=== PATIENT | female | born 1955 | race Caucasian/White ===

== ENCOUNTER 2018-04-10 10:49 | Observation (INO) | payer BC ==
[2018-04-09 16:24] VITALS: BMI 29.0
[~2018-04-10] VITALS: Ht 175.3 cm; Wt 90.9 kg
[2018-04-10] VITALS (7 sets, daily range): BP systolic 119–145; BP diastolic 62–76; PULSE 45–77; TEMP 36.3–36.8; O2SAT 95–98; Ht 175.3 cm; Wt 90.9 kg
[~2018-04-10 10:49] MED LIST: CEFUROXIME IV 1,000 MG in DEXTROSE 5% 50ML 50 ML IV SCH; CEFUROXIME IV 1,500 MG in DEXTROSE 5% 100ML IV SCH; LACTATED RINGER'S 1000ML 1,000 ML IV SCH; PRAV20TA PO; PRLSR20 PO
[2018-04-10 11:47] LABS: HEMATOCRIT 39.1 % (37-47); HEMOGLOBIN 13.1 g/dL (12.0-16.0); MEAN CELL VOLUME 89.3 fL (80-100); MEAN CORPUSCULAR HEMOGLOBIN 29.9 pg (25-34); MEAN PLATELET VOLUME 10.4 fL (7.4-10.4); PLATELET COUNT 273 K/uL (130-400); RED CELL DISTRIBUTION WIDTH CV 13.3 % (11.5-14.5); RED CELL DISTRIBUTION WIDTH SD 43.3 fL (36.4-46.3); WHITE BLOOD COUNT 5.68 K/uL (4.8-10.8)
[2018-04-10 12:00] LABS: MEAN CORPUSCULAR HGB CONC 33.5 g/dl (32-36)
[2018-04-10 12:05] LABS: CALCIUM 9.5 mg/dl (8.5-10.1); CREATININE 0.91 mg/dl (0.60-1.20); POTASSIUM 4.6 mmol/L (3.5-5.1)
[2018-04-10] MEDS ORDERED: FENTANYL CITRATE INJ 50 MCG/1 ML 2 ML VIAL ONE ×2 (12:33→14:28)
[2018-04-10] MEDS ORDERED: MIDAZOLAM HCL 1 MG/ML 2ML VIAL ONE (12:34)
[2018-04-10] MEDS ORDERED: PROPOFOL IV EMULSION 10 MG/ML 20 ML VIAL ONE (12:35)
[2018-04-10] MEDS ORDERED: BUPIVACAINE 0.25% 30 ML VIAL ONE (12:41)
--- NOTE | 2018-04-10 12:49 | History & Physical Bridge Note ---
H&P Re-Evaluation Bridge Note: I have examined the patient, reviewed the History & Physical and in the interval since the performance of the History & Physical I have noted the following changes of clinical significance: No changes noted
[2018-04-10] MEDS ORDERED: CONRAY 60% 50 ML VIAL ONE (12:51)
[2018-04-10] MEDS ORDERED: SUCCINYLCHOLINE 100MG/5ML SYR IV ONE (13:18)
[2018-04-10] MEDS ORDERED: CISATRACURIUM BESYLATE IV SOLN 2 MG/ML 10 ML VIAL ONE (13:18)
[2018-04-10] MEDS ORDERED: ONDANSETRON INJ 2 MG/ML 2 ML VIAL ONE ×2 (13:33→14:05)
[2018-04-10] MEDS ORDERED: GLYCOPYRROLATE INJ 0.2 MG/ML VIAL ONE (13:44)
[2018-04-10] MEDS ORDERED: NEOSTIGMINE METHYLSULFATE 5 MG/5 ML SYR ONE (13:44)
--- NOTE | 2018-04-10 13:50 | [facility] Operative Report ---
Operative Report Operative Date Apr 10, 2018. Pre-Operative Diagnosis chronic cholecysitis Post-Operative Diagnosis chronic cholecysitis Procedure(s) Performed Laparoscopic Cholecystectomy Surgeon Dr. Juan J Gimenez Fashion Artist Surgeon(s) Tyler Rubi PA-C Estimated Blood Loss 10ML Findings small cystic duct Specimens Permanent Solution: A.) Gallbladder and Contents Drains None Anesthesia Type General Complication(s) none Disposition Recovery Room / PACU I attest to the content of the Intraoperative Record and any orders documented therein. Any exceptions are noted below.
[2018-04-10] MEDS ORDERED: LACTATED RINGER'S 1000ML 1,000 ML IV SCH (13:56)
[2018-04-10] MEDS ORDERED: ACETAMINOPHEN IV 100 ML IV ONE (14:00)
[2018-04-10] MEDS ORDERED: MoRPHine SULFATE 4 MG/ML 1 ML CARP\\VIAL IV PRN (14:00)
[2018-04-10] MEDS ORDERED: PROMETHAZINE HCL INJ 25 MG in SODIUM CHLORIDE 0.9% 50ML 50 ML IV PRN (14:00)
[2018-04-10] MEDS ORDERED: MoRPHine SULFATE 2 MG/ML CARP IV PRN (14:00)
[2018-04-10] MEDS ORDERED: HYDR-5688 PO (14:00)
[2018-04-10] MEDS ORDERED: HYDROCODONE/ACETAMIN 5/325MG TAB PO PRN ×2 (14:00)
[2018-04-10] MEDS ORDERED: ONDANSETRON INJ 2 MG/ML 2 ML VIAL IV PRN ×2 (14:00→14:15)
--- NOTE | 2018-04-10 14:04 | Discharge Instructions ---
Discharge Instructions Date of Service Apr 10, 2018. Admission Reason for Admission: Biliary Colic Discharge Discharge Diagnosis / Problem: chronic cholecystitis Discharge Goals Goal(s): Decrease discomfort, Improve function, Improve disease control Activity Recommendations Activity Limitations: as noted below Lifting Limitations: no more than 25 pounds Exercise/Sports Limitations: until after follow-up appointment May Resume Sexual Activity: when tolerated Shower/Bathe: keep incision dry (may shower over incisions on 04/12) . Instructions / Follow-Up Instructions / Follow-Up SPECIAL CARE INSTRUCTIONS: * Cover incisions and change daily for comfort/drainage. may leave uncovered with dermabond and if steri strips are dry * Leave steri strips in place * May use ibuprofen for pain as tolerated. * Expect some swelling and bruising. Call your doctor if: * Temperature above 101 degrees * Pain not relieved by pain medicine ordered * There is increased drainage or redness from any incision * You have any unanswered questions or concerns [phone]. FOLLOW UP VISIT: If not already scheduled, please call the office for a follow-up visit. when scheduled- no sutures to remove OFFICE PHONE NUMBER: Dr. Gimenez Office Current Hospital Diet Patient's current hospital diet: Regular Diet Discharge Diet Recommended Diet: Regular Diet Procedures Procedures Performed: Laparoscopic Cholecystectomy Pending Studies Studies pending at discharge: no Medical Emergencies . Who to Call and When: Medical Emergencies: If at any time you feel your situation is an emergency, please call 911 immediately. . Non-Emergent Contact Non-Emergency issues call your: Primary Care Provider, Surgeon . "Provider Documentation" section prepared by Juan J Gimenez. .
[2018-04-10] MEDS ORDERED: ONDA4TAB46 PO (14:08)
--- NOTE | 2018-04-10 14:13 | OPERATIVE REPORT ---
DATE OF OPERATION: 04/10/2018 NAME OF OPERATION: Laparoscopic cholecystectomy. PREOPERATIVE DIAGNOSIS: Biliary colic. POSTOPERATIVE DIAGNOSIS: Biliary colic with chronic cholecystitis. STAFF SURGEON: Juan J Gimenez MD STAVE HEWER: Tyler James PA-C. ANESTHESIA: General. DESCRIPTION OF PROCEDURE: The patient was brought in the operating room and placed on the operating room table in supine position. Pneumatic stockings, orogastric tube were placed. Her abdomen was prepped and draped in usual fashion. 0.5% plain Marcaine was used to anesthetize all incisions. Incision was made above the umbilicus, carrying dissection down to the fascia, placing a Veress needle producing pneumoperitoneum. The patient was placed in reverse Trendelenburg position, rotated to the left. An 11 mm port was placed at this level and then under visualization, three 5 mm ports were placed, 1 cephalad and 2 laterally. Gallbladder was grasped and retracted. The cystic artery was identified, initially it was clipped and transected. The cystic duct was identified. It was clipped next to the gallbladder, then partially opened. It was very small. I was unable to pass a catheter easily. I did not feel any stones in the duct. It was clipped and transected. The gallbladder was then dissected away from the liver bed showing some evidence of scar tissue. The gallbladder was placed in an Endobag. After appropriate hemostasis and irrigation, the Endobag was removed through the umbilical site. All ports were then removed. The fascia at the umbilicus closed using interrupted 0 Vicryl suture. Skin reapproximated using subcuticular 4-0 Monocryl. The umbilical incision closed using Dermabond. The other sites closed using Steri-Strips. The patient was transferred to recovery room in stable condition. I attest to the content of the Intraoperative Record and any orders documented therein. Any exception s are noted below.
[2018-04-10] MEDS ORDERED: ATROPINE SULFATE 0.1 MG/ML 5ML SYR IV PRN (14:15)
[2018-04-10] MEDS ORDERED: PROMETHAZINE HCL INJ 12.5 MG in SODIUM CHLORIDE 0.9% 50ML 50 ML IV PRN ×2 (14:15→15:15)
[2018-04-10] MEDS ORDERED: FLUMAZENIL 0.1 MG/1 ML 10 ML VIAL IV PRN (14:15)
[2018-04-10] MEDS ORDERED: NALOXONE HCL 0.4 MG/1 ML VIAL/CARP IV PRN (14:15)
[2018-04-10] MEDS ORDERED: LABETALOL HCL IV 5 MG/ML 20ML IV PRN (14:15)
[2018-04-10] MEDS ORDERED: EpHEDrine SULFATE INJ 50 MG/ML AMP IV PRN (14:15)
[2018-04-10] MEDS ORDERED: FENTANYL CITRATE INJ 50 MCG/1 ML 2 ML VIAL IV PRN (14:15)
[2018-04-10] MEDS ORDERED: IV FLUIDS COMPLETED PRN (14:45)
--- NOTE | 2018-04-10 14:47 | Anesthesiology Progress Note ---
Anesthesia Post Op Note Date & Time Apr 10, 2018 at 14:47 Vital Signs Pain Intensity: 2 Vital Signs Past 12 Hours Date Time Temp Pulse Resp B/P (MAP) Pulse Ox O2 Delivery O2 Flow Rate FiO2 04/10/18 14:40 36.1 48 17 159/68 96 Nasal Cannula 2 04/10/18 14:30 47 15 156/73 97 Nasal Cannula 2 04/10/18 14:20 46 13 128/71 98 Oxymask 10 04/10/18 14:10 47 21 125/75 98 Oxymask 10 04/10/18 14:02 36.1 54 20 175/69 98 Oxymask 10 04/10/18 11:11 36.8 77 16 141/62 (88) 96 Room Air Notes Mental Status: alert / awake / arousable, participated in evaluation Pt Amnestic to Procedure: Yes Nausea / Vomiting: adequately controlled Pain: adequately controlled Airway Patency, RR, SpO2: stable & adequate BP & HR: stable & adequate Hydration State: stable & adequate Anesthetic Complications: no major complications apparent
[2018-04-10] MEDS ORDERED: PRAVASTATIN SOD 20 MG TAB PO SCH (21:00)
[2018-04-11 03:22] VITALS: BP 113/67; PULSE 55; TEMP 36.5; O2SAT 94
--- NOTE | 2018-04-11 06:37 | DISCHARGE SUMMARY ---
PRINCIPAL DIAGNOSIS: Chronic cholecystitis. PROCEDURES: The patient underwent laparoscopic cholecystectomy. HISTORY OF PRESENT ILLNESS: The patient is a 62-year-old female who has been having what appears to be biliary colic. She had an ultrasound showing stones and sludge. HOSPITAL COURSE: The patient was brought in the hospital on 04/10/2018 where she underwent laparoscopic cholecystectomy. She tolerated the procedure very well and is felt stable for discharge home today to be followed in the surgical clinic within 1-2 weeks.
[2018-04-11 07:30] VITALS: O2SAT 94
[2018-04-11 07:54] VITALS: BP 113/67; PULSE 55; TEMP 36.5; O2SAT 94
[2018-04-11 08:03] VITALS: BP 118/56; PULSE 69; TEMP 36.6; O2SAT 96
[2018-04-11 08:50] VITALS: O2SAT 96
== END 2018-04-11 09:22 | disposition home or self-care (01) ==
LOC: C.ACU 10:49 → C.MSW 13:59 → ENRESERV 14:38
PROVIDERS: ADMIT Surgery; ATTEND Surgery
DX: K80.44 Calculus of bile duct with chronic cholecystitis without obstruction (principal); K80.10 Calculus of gallbladder with chronic cholecystitis without obstruction; E11.9 Type 2 diabetes mellitus without complications; E78.5 Hyperlipidemia, unspecified; E66.9 Obesity, unspecified; Z79.899 Other long term (current) drug therapy; Z88.5 Allergy status to narcotic agent; Z68.29 Body mass index [BMI] 29.0-29.9, adult; Z85.3 Personal history of malignant neoplasm of breast